=== PATIENT | male | born 1995 | race Caucasian/White ===

== ENCOUNTER → 2017-04-18 | Emergency (ER) | payer SELFPAY ==
[~2017-04-18] VITALS: Ht 177.8 cm; Wt 74.8 kg
[~2017-04-18] MED LIST: LORAZEPAM 1 MG TABLET ONE; LORAZEPAM 1 MG TABLET PO ONE
[2017-04-18 18:09] VITALS: BP 124/69
== END | disposition home or self-care (01) ==
LOC: ER 17:57
DX: F41.9 Anxiety disorder, unspecified (principal)
CPT/HCPCS: 99284; A4606; Z7610